=== PATIENT | male | born 1955 | race Caucasian/White ===

== ENCOUNTER 2019-07-04 07:41 | Emergency (ER) | payer SELFPAY ==
[2019-07-04 08:02] VITALS: BP 149/93
--- NOTE | 2019-07-04 08:07 | UC ---
Hand/Wrist HPI - HPI Summary HPI Summary: 63yo male presenting with right ventral wrist pain and "lump" after hitting on an ice machine while trying to break up the ice yesterday morning at work. States pain radiates into thumb. Denies hand pain but states it is starting to feel somewhat numb. Denies decreased ROM but that it "hurts to move." - History Of Current Complaint Chief Complaint: UCUpperExtremity Stated Complaint: RT HAND INJURY Hx Obtained From: Patient Pain Intensity: 10 Pain Scale Used: 0-10 Numeric - Allergies/Home Medications Allergies/Adverse Reactions: Allergies Allergy/AdvReac Type Severity Reaction Status Date / Time No Known Allergies Allergy Verified 10/20/12 11:42 Home Medications: Home Medications NK [No Home Medications Reported] 07/04/19 [History Confirmed 07/04/19] PMH/Surg Hx/FS Hx/Imm Hx - Surgical History Surgical History: Yes - Family History Known Family History: Positive: Non-Contributory - Social History Alcohol Use: Daily Substance Use Type: None Smoking Status (MU): Heavy Every Day Tobacco Smoker Type: Cigarettes Have You Smoked in the Last Year: Yes Household Exposure Type: Cigarettes Review of Systems All Other Systems Reviewed And Are Negative: No Constitutional: Positive: Negative Skin: Negative: Bruising Respiratory: Positive: Negative Cardiovascular: Positive: Negative Musculoskeletal: Positive: Arthralgia - right wrist, Edema. Negative: Decreased ROM Neurological/Mental Status: Positive: Numbness. Negative: Paresthesia Physical Exam - Summary Physical Exam Summary: Vital Signs Reviewed: Yes A+Ox3, no distress Eyes: Conjunctiva Clear ENT: Hearing grossly normal neck: supple Respiratory: Positive: No respiratory distress, No accessory muscle use Cardiovascular: skin color reflect adequate perfusion Musculoskeletal Exam: GALEANA x 4 without difficulty, +TTP of radial aspect of ventral right wrist, mild edema noted, ROM intact, handgrip strength intact, 2+ radial pulses, sensation grossly intact Neurological: Positive: Alert, ambulatory without difficulty Psychological: Positive: age appropriate behavior Skin: Positive: no rash, no ecchymosis Vital Signs: Initial Vital Signs Temp 98.7 F 07/04/19 07:53 Pulse 72 07/04/19 07:53 Resp 16 07/04/19 07:53 BP 149/93 07/04/19 07:53 Pulse Ox 98 07/04/19 07:53 Diagnostics - Radiology wrist Radiology Interpretation Completed By: Radiologist Summary of Radiographic Findings: FINDINGS: The bones are normal alignment. There is a small 1 mm bony density distal to the ulnar styloid process possibly representing an old fracture fragment. No acute fracture is seen. There are hypertrophic changes present around the distal radial ulnar joint suggestive of osteoarthritic change. IMPRESSION: NO EVIDENCE FOR ACUTE FRACTURE. IF THE PATIENT'S SYMPTOMS PERSIST RECOMMEND FOLLOW-UP IMAGING. Hand/Wrist Course/Dx - Course Course Of Treatment: Discussed radiograph findings with patient. Instructed to continue with RICE and provided with cock up splint. Instructed to follow up with ortho if wrist pain not improved in 1-2 weeks. Patient voiced understanding and agreed with treatment plan. - Differential Dx/Diagnosis Differential Diagnosis/HQI/PQRI: Contusion, Fracture, Sprain, Strain Provider Diagnosis: Acute pain of right wrist Discharge ED - Sign-Out/Discharge Documenting (check all that apply): Patient Departure All imaging exams completed and their final reports reviewed: Yes - Discharge Plan Condition: Stable Disposition: HOME Patient Education Materials: Wrist Injury (ED) Referrals: Agus Aguillon MD [Medical Doctor] - If Needed Jovani Hammonds MD [Primary Care Provider] - Additional Instructions: As discussed, the xrays of your wrist did not show any abnormalities. Rest, ice, elevate, and use the brace to help alleviate pain and swelling. You may also take over the counter pain medications as directed. Follow up with your primary care provider or orthopedics listed below if pain persists. - Billing Disposition and Condition Condition: STABLE Disposition: Home
== END 2019-07-04 08:58 | disposition home or self-care (01) ==
LOC: UCEAST 07:41
DX: M25.531 Pain in right wrist (principal); F17.210 Nicotine dependence, cigarettes, uncomplicated; W22.8XXA Striking against or struck by other objects, initial encounter; Y92.9 Unspecified place or not applicable; Y99.0 Civilian activity done for income or pay
CPT/HCPCS: 99202; G0463

== ENCOUNTER 2022-12-01 13:11 | Inpatient (IN) ==
[2022-12-01] MEDS ORDERED: VERAPAMIL 2.5 MG/ML 2 ML VIAL ** 5 mg/2 ml IV SLOW PU ONE ×2 (13:30→13:55)
[2022-12-01 13:40] LABS: ABS Lymphocytes 0.7 10^3/uL (1.0-4.8); ABS Monocytes 0.8 10^3/uL (0.0-1.1); ABS Neutrophils 5.3 10^3/uL (1.5-7.6); ABS Nucleated RBC 0.01 10^3/ul; Eosinophil % 0.4 %; Hematocrit 45.9 % (38-53); Hemoglobin 15.8 g/dL (13.2-16.3); Lymphocyte % 10.4 %; Mean Corpuscular Hemoglobin 31.1 pg (27-33); Mean Corpuscular Hgb Conc 34.4 g/dL (31-36); Mean Corpuscular Volume 90.5 fL (80-97); Mean Platelet Volume 8.8 fL (7.5-11.2); Nucleated Red Blood Cells % 0.1 /100 WBC (0.0-0.4); Platelet Count 176 10^3/uL (150-450); Red Blood Count 5.08 10^6/uL (4.06-5.63); Red Cell Distribution Width 13.9 % (12-17); White Blood Count 6.9 10^3/uL (3.6-10.2)
[2022-12-01 13:47] LABS: INR 1.29 (0.88-1.18)
[2022-12-01 14:00] LABS: Potassium 4.4 mmol/L (3.5-5.0)
[2022-12-01 14:01] LABS: Albumin 3.9 g/dL (3.2-5.2); Albumin/Globulin Ratio 1.6 (1-3); Calcium 9.1 mg/dL (8.6-10.3); Creatinine, Serum 1.16 mg/dL (0.67-1.17); Globulin 2.4 g/dL (2-4); Total Bilirubin 1.1 mg/dL (0.2-1.0); Total Protein 6.3 g/dL (6.4-8.9)
[2022-12-01 14:03] LABS: Magnesium 1.9 mg/dL (1.9-2.7)
[2022-12-01] MEDS ORDERED: Dexamethasone IV 4 MG/ML VIAL 1 ml VIAL IV SLOW PU ONE (14:09)
[2022-12-01 14:31] LABS: TSH Ultra Thyroid Stim Horm 2.17 mcIU/mL (0.34-5.60)
[2022-12-01 14:33] LABS: Free T4 1.15 ng/dL (0.61-1.12)
[2022-12-01 15:01] LABS: High Sensitivity Troponin 1 Hr 28 pg/mL (<20)
[2022-12-01] MEDS ORDERED: Furosemide 20 mg/2 ml IV VIAL IV SLOW PU ONE (17:37)
[2022-12-01] MEDS ORDERED: Nicotine GUM 4MG FRUIT FLAVOR PO PRN (17:56)
[2022-12-01 18:02] LABS: HDL Cholesterol 41.4 mg/dL
[2022-12-01 18:30] LABS: Folate 15.6 ng/mL (5.90-24.80)
[2022-12-01] MEDS: Nicotine PATCH 14 MG/24 HR PATCH TRANSDERM SCH (20:20)
[2022-12-02 05:45] LABS: ABS Lymphocytes 0.3 10^3/uL (1.0-4.8); ABS Monocytes 0.2 10^3/uL (0.0-1.1); ABS Neutrophils 4.5 10^3/uL (1.5-7.6); Hematocrit 42.6 % (38-53); Hemoglobin 14.6 g/dL (13.2-16.3); Lymphocyte % 6.2 %; Mean Corpuscular Hemoglobin 31.1 pg (27-33); Mean Corpuscular Hgb Conc 34.3 g/dL (31-36); Mean Corpuscular Volume 90.6 fL (80-97); Platelet Count 167 10^3/uL (150-450); Red Cell Distribution Width 13.9 % (12-17); White Blood Count 5.1 10^3/uL (3.6-10.2)
[2022-12-02 05:59] LABS: Calcium 8.6 mg/dL (8.6-10.3); Magnesium 1.9 mg/dL (1.9-2.7); Potassium 4.3 mmol/L (3.5-5.0)
[2022-12-02 06:05] LABS: Creatinine, Serum 1.11 mg/dL (0.67-1.17); eGFR CKD-EPI 72.8 (>60)
[2022-12-02] MEDS ORDERED: Sulfur Hexaflouride MICROSPHR 25 MG VIAL ONE (08:23)
[2022-12-02] MEDS: Nicotine PATCH 14 MG/24 HR PATCH TRANSDERM SCH (09:36)
[2022-12-02] MEDS ORDERED: NS 0.9% 1000 ml BAG 1,000 ML IV SCH (23:55)
[2022-12-03] MEDS ORDERED: Lorazepam PYXIS KEY PRN (01:58)
[2022-12-03] MEDS ORDERED: LORazepam 2 mg VIAL 1 ml IV PUSH SCH (02:00)
[2022-12-03 05:10] LABS: ABS Lymphocytes 0.6 10^3/uL (1.0-4.8); ABS Monocytes 0.7 10^3/uL (0.0-1.1); ABS Neutrophils 6.6 10^3/uL (1.5-7.6); Eosinophil % 0.1 %; Hematocrit 42.9 % (38-53); Hemoglobin 14.7 g/dL (13.2-16.3); Lymphocyte % 7.9 %; Mean Corpuscular Hemoglobin 31.1 pg (27-33); Mean Corpuscular Hgb Conc 34.3 g/dL (31-36); Mean Corpuscular Volume 90.6 fL (80-97); Mean Platelet Volume 8.6 fL (7.5-11.2); Platelet Count 183 10^3/uL (150-450); Red Blood Count 4.74 10^6/uL (4.06-5.63)
[2022-12-03 05:26] LABS: Calcium 8.5 mg/dL (8.6-10.3); Creatinine, Serum 0.97 mg/dL (0.67-1.17); Potassium 4.3 mmol/L (3.5-5.0); eGFR CKD-EPI 85.6 (>60)
[2022-12-03 06:08] LABS: Ferritin 157.1 ng/mL (24-336)
[2022-12-03] MEDS: Multivitamins/Minerals TAB PO SCH (07:54)
[2022-12-03] MEDS: Nicotine PATCH 14 MG/24 HR PATCH TRANSDERM SCH (07:54)
[2022-12-03] MEDS ORDERED: Flumazenil 0.5 mg/5 ml 0.1 MG/ML 5 ml VIAL IV PRN (09:26)
[2022-12-03] MEDS ORDERED: Naloxone 0.4 mg VIAL 0.4 mg/ml 1 ml VIAL IV PUSH PRN (09:26)
[2022-12-03] MEDS ORDERED: fentaNYL 100 mcg/2 ml 50 MCG/ML VIAL IV SLOW PU ONE (09:26)
[2022-12-03] MEDS ORDERED: Midazolam 10 mg/10 ml VIAL 1 mg/ml 10 ml VIAL (10 mg) IV SLOW PU ONE (09:26)
[2022-12-03] MEDS ORDERED: fentaNYL 100 mcg/2 ml 50 MCG/ML VIAL ONE (15:25)
[2022-12-03] MEDS ORDERED: Heparin 1,000 UNIT/ML 10 ml (10,000 UNITS) CATHLAB/DIALYSIS ONE (15:25)
[2022-12-03] MEDS ORDERED: Midazolam 5 mg/5 ml VIAL 1 mg/ml 5 ml VIAL (5 mg) ONE (15:25)
[2022-12-03] MEDS ORDERED: niCARdipine 0.1MG/ML IVPREMIX 20 MG/200 ML BAG IV ONE (15:26)
[2022-12-03] MEDS ORDERED: Heparin 2 UNITS/ML 1000 mls 3,000 ML IV ONE (15:26)
[2022-12-03] MEDS ORDERED: Iohexol 350 (CONTRAST) 200 ML MDV IV ONE (15:26)
[2022-12-03] MEDS ORDERED: nitroGLYCERIN DRIP 25,000 MCG/250 ML BTL ONE (15:26)
[2022-12-03] MEDS ORDERED: Lidocaine 1% MPF 5 ML VIAL ONE (15:26)
[2022-12-03] MEDS ORDERED: Iohexol 350 (CONTRAST) 100 ML PAK IV ONE ×2 (15:27→15:28)
[2022-12-03 16:26] LABS: POC SO2 65 %
[2022-12-03 16:26] LABS: POC SO2 90 %
[2022-12-04 04:27] LABS: ABS Lymphocytes 1.1 10^3/uL (1.0-4.8); ABS Monocytes 0.7 10^3/uL (0.0-1.1); ABS Neutrophils 4.4 10^3/uL (1.5-7.6); Eosinophil % 0.6 %; Hematocrit 47.5 % (38-53); Hemoglobin 16.3 g/dL (13.2-16.3); Lymphocyte % 17.3 %; Mean Corpuscular Hemoglobin 31.5 pg (27-33); Mean Corpuscular Hgb Conc 34.3 g/dL (31-36); Mean Corpuscular Volume 91.9 fL (80-97); Mean Platelet Volume 8.7 fL (7.5-11.2); Nucleated Red Blood Cells % 0.1 /100 WBC (0.0-0.4); Platelet Count 193 10^3/uL (150-450); Red Blood Count 5.18 10^6/uL (4.06-5.63); Red Cell Distribution Width 14.2 % (12-17); White Blood Count 6.2 10^3/uL (3.6-10.2)
[2022-12-04 04:41] LABS: Calcium 8.4 mg/dL (8.6-10.3); Creatinine, Serum 0.95 mg/dL (0.67-1.17); Potassium 4.6 mmol/L (3.5-5.0); eGFR CKD-EPI 87.7 (>60)
[2022-12-04] MEDS: Nicotine PATCH 14 MG/24 HR PATCH TRANSDERM SCH (07:44)
[2022-12-04] MEDS: Multivitamins/Minerals TAB PO SCH (07:46)
[2022-12-04] MEDS ORDERED: fentaNYL 100 mcg/2 ml 50 MCG/ML VIAL ONE (09:22)
[2022-12-04] MEDS ORDERED: Midazolam 5 mg/5 ml VIAL 1 mg/ml 5 ml VIAL (5 mg) ONE (09:22)
[2022-12-04] MEDS ORDERED: Benzocaine/Butamben/Tetracain (CETACAINE - SINGLE USE) 5 gm TOPICAL ONE (09:23)
[2022-12-04] MEDS ORDERED: Flumazenil 0.5 mg/5 ml 0.1 MG/ML 5 ml VIAL ONE (09:23)
[2022-12-04] MEDS ORDERED: Naloxone 0.4 mg VIAL 0.4 mg/ml 1 ml VIAL ONE (09:23)
[2022-12-04] MEDS ORDERED: Naloxone 0.4 mg VIAL 0.4 mg/ml 1 ml VIAL IV PUSH PRN (11:15)
[2022-12-05 04:23] LABS: ABS Eosinophils 0.1 10^3/uL (0.0-0.5); ABS Lymphocytes 1.2 10^3/uL (1.0-4.8); ABS Monocytes 0.7 10^3/uL (0.0-1.1); ABS Neutrophils 4.4 10^3/uL (1.5-7.6); ABS Nucleated RBC 0.03 10^3/ul; Eosinophil % 1.2 %; Hematocrit 51.5 % (38-53); Hemoglobin 18.2 g/dL (13.2-16.3); Mean Corpuscular Hemoglobin 31.5 pg (27-33); Mean Corpuscular Hgb Conc 35.3 g/dL (31-36); Mean Corpuscular Volume 89.1 fL (80-97); Mean Platelet Volume 8.6 fL (7.5-11.2); Nucleated Red Blood Cells % 0.4 /100 WBC (0.0-0.4); Platelet Count 193 10^3/uL (150-450); Red Blood Count 5.79 10^6/uL (4.06-5.63); Red Cell Distribution Width 14.1 % (12-17); White Blood Count 6.4 10^3/uL (3.6-10.2)
[2022-12-05 04:32] LABS: Calcium 8.5 mg/dL (8.6-10.3); Creatinine, Serum 0.9 mg/dL (0.67-1.17); Potassium 4.7 mmol/L (3.5-5.0); eGFR CKD-EPI 93.6 (>60)
[2022-12-05] MEDS: Nicotine PATCH 14 MG/24 HR PATCH TRANSDERM SCH (10:30)
[2022-12-05] MEDS: Multivitamins/Minerals TAB PO SCH (10:33)
[2022-12-06 06:46] LABS: Calcium 8.7 mg/dL (8.6-10.3); Creatinine, Serum 0.91 mg/dL (0.67-1.17); Magnesium 1.9 mg/dL (1.9-2.7); Potassium 4.5 mmol/L (3.5-5.0); eGFR CKD-EPI 92.4 (>60)
[2022-12-06] MEDS: Nicotine PATCH 14 MG/24 HR PATCH TRANSDERM SCH (08:43)
[2022-12-06] MEDS: Multivitamins/Minerals TAB PO SCH (08:43)
[2022-12-06 15:22] VITALS: BP 102/63
== END 2022-12-06 16:40 | disposition home or self-care (01) | DRG 287 ==
LOC: ED 13:11 → EDHOLD 16:31 → SUATTDRO 16:31 → ICU 12-02 01:22 → MEDTELE 12-06 02:02
PROVIDERS: ADMIT Student in an Organized Health Care Education/Training Program; ATTEND Hospitalist